=== PATIENT | female | born 1965 | race Caucasian/White ===

== ENCOUNTER 2019-08-21 13:48 | Emergency (ER) | payer MEDICAID, OTHER, SELFPAY ==
[~2019-08-21] VITALS: Ht 167.6 cm; Wt 86.0 kg
[2019-08-21 13:53] VITALS: BP 132/93
[2019-08-21] MEDS ORDERED: MECLIZINE CHEWABLE 25 MG TAB PO ONE (14:00)
--- NOTE | 2019-08-21 14:05 | NUR ---
PT ARRIVES TO ROOM 29 PER EMS. PT PLACED IN GOWN AND PLACED ON MONITOR. PT C/O LIGHTHEADEDNESS AND DIZZINESS X2 DAYS. PT STATES "I WOKE UP IN SWEATS TODAY, WITH SOME NUMBNESS IN MY RIGHT ARM". PT IS LETHARGIC AND IS UNABLE TO UNDRESS HER UPPER BODY WITHOUT ASSISTANCE. MD IN ROOM TO ASSESS PATIENT. ORDERS PLACED. LAB AT BEDSIDE.
[2019-08-21] MEDS ORDERED: MECLIZINE CHEWABLE 25 MG TAB ONE (14:14)
--- NOTE | 2019-08-21 14:19 | NUR ---
DAUGHTER AT BEDSIDE. PT REMAINS LETHARGIC. MECLIZINE GIVEN WITHOUT DIFF. WARM BLANKET PROVIDED. CT HERE TO TAKE PATIENT TO CAT SCAN.
[2019-08-21 14:24] LABS: BASOPHILS # (AUTO) 0.06 x10^3/uL (0-0.1); BASOPHILS % (AUTO) 1 % (0-1); EOSINOPHILS # (AUTO) 0.19 x10^3/uL (0-0.4); EOSINOPHILS % (AUTO) 4 % (1-7); LYMPHOCYTES # (AUTO) 2.34 x10^3/uL (1-3.4); LYMPHOCYTES % (AUTO) 44 % (22-44); MD NO; MEAN CORPUSCULAR HGB CONC 32.9 g/dL (32.4-35.8); MEAN CORPUSCULAR VOLUME 88.2 fL (80-100); MEAN PLATELET VOLUME 7.1 fL (7.4-10.4); MONOCYTES # (AUTO) 0.53 x10^3/uL (0.2-0.8); MONOCYTES % (AUTO) 10 % (2-9); NEUTROPHILS % (AUTO) 41 % (42-75); PLATELET COUNT 343 x10^3/uL (130-400); RED BLOOD COUNT 4.71 x10^6/uL (3.82-5.3); RED CELL DISTRIBUTION WIDTH 13.9 % (9.6-15.2)
[2019-08-21 14:30] LABS: ALBUMIN 3.4 g/dL (3.4-5.0); ANION GAP 6 mmol/L (5-15); CALCIUM 8.6 mg/dL (8.5-10.1); CHLORIDE 107 mmol/L (98-107)
[2019-08-21 14:38] LABS: ALANINE AMINOTRANSFERASE 43 U/L (12-78); ALKALINE PHOSPHATASE 100 U/L (45-117); BILIRUBIN,TOTAL 0.3 mg/dL (0.2-1.0); CREATININE 0.75 mg/dL (0.55-1.02); TOTAL PROTEIN 7.4 g/dL (6.4-8.2); TROPONIN I < 0.015 ng/mL (0.000-0.045)
--- NOTE | 2019-08-21 15:30 | NUR ---
REQUEST FOR URINE FROM PATIENT. PT STATES "I'M TO DIZZY TO EVEN TRY AND GET UP" NOTIFIED
[2019-08-21] MEDS ORDERED: DIAZEPAM 5 MG TABLET PO ONE (16:00)
--- NOTE | 2019-08-21 16:30 | NUR ---
PT AMBULATES TO BR WITH ONE ASSIST, BUT WALKS BACK FROM BR WITH STRONG STEADY GAIT. MINIMAL URINE, ENOUGH FOR TESTING AFTER TAKEN TO LAB.
[2019-08-21 16:44] LABS: MICROSCOPIC INDICATED
[2019-08-21 16:45] LABS: CULTURE INDICATED? YES
[2019-08-21] MEDS ORDERED: DIAZEPAM 5 MG TABLET ONE (17:01)
--- NOTE | 2019-08-21 17:26 | NUR ---
PT VERY UPSET THAT MD HAS NOT COME BACK IN AND GIVEN ANY TEST RESULTS. SPOKE WITH PATIENT ABOUT ED WORKINGS AND OFFERED TO GO SPEAK WITH MD AND HAVE HIM COME DOWN AND SPEAK WITH PATIENT. PT REFUSED. PT WANTS TO LEAVE, STATES "I NEED FOOD, DRINK AND CIGARETTES" RN LEAVES AND OBTAINS AMA FORM FOR PATIENT TO SIGN. IV REMOVED WITH CATH INTACT AND THEN AMA FORM SIGNED BY PATIENT. PT AMBULATED OUT OF ED PER PEDIS WITH STRONG STEADY GAIT, DAUGHTER AT HER SIDE.
== END 2019-08-21 17:31 | disposition left against medical advice (07) ==
LOC: ED 14:48
DX: R42 Dizziness and giddiness (principal); R11.0 Nausea; R20.2 Paresthesia of skin
CPT/HCPCS: 36415; 70450; 80053; 81001; 84484; 85025; 87086; 99284